=== PATIENT | female | born 1940 | race Caucasian/White ===

== ENCOUNTER 2021-07-23 11:58 | Observation (INO) | payer MEDICARE ==
[2021-07-23] MEDS ORDERED: MORPHINE SULFATE 2 MG INJ IV ONE (12:32)
[2021-07-23] MEDS ORDERED: Pepcid 20 MG VIAL IV ONE ×2 (12:32→12:40)
[2021-07-23] MEDS ORDERED: Zofran 4 MG/2 ML VIAL IV ONE (12:32)
[2021-07-23] MEDS ORDERED: Sodium Chloride 0.9% 500 ML 500 ML IV ONE ×2 (12:33→12:46)
[2021-07-23] MEDS ORDERED: MORPHINE SULFATE 2 MG INJ ONE (12:40)
[2021-07-23] MEDS ORDERED: Zofran 4 MG/2 ML VIAL ONE (12:40)
[2021-07-23] MEDS ORDERED: Sodium Chloride 0.9% 1000 ML 0 ML ONE (12:40)
[2021-07-23 12:59] LABS: Absolute Neutrophil Ct (ANC) 2.83 (1.4-6.9); BASOPHIL % 0.2 % (0.0-0.4); Basophil (Absolute #) 0.01 (0-0.4); Eosinophil % 0.6 % (0.00-5.0); Eosinophil (Absolute #) 0.03 (0-0.5); Hematocrit 39.4 % (35-47); Hemoglobin 13.3 gm/dl (12.0-16.0); Lymphocyte (Absolute #) 1.87 (1.0-4.6); Lymphocytes % 35.6 % (24.0-44.0); Mean Cell Volume 88.3 fl (78-100); Mean Corpuscular Hemoglobin 29.8 pg (26-32); Mean Corpuscular Hgb Concent. 33.8 g/dl (32-36); Mean Platelet Volume 11.7 fl (7.5-11.0); Monocyte (Absolute #) 0.51 (0.0-1.3); Monocytes % 9.7 % (0.0-12.0); Neutrophil % 53.9 % (36.0-66.0); Platelet Count 181 K/mm3 (150-450); Red Blood Count 4.46 M/mm3 (4.1-5.4); Red Cell Distribution Width 13.8 % (11.5-14.0); White Blood Count 5.3 K/mm3 (4.0-10.5)
[2021-07-23 13:02] LABS: ALBUMIN 4.2 g/dL (3.5-5.0); ANION GAP 20.1 MEQ/L (5-15); BILIRUBIN,TOTAL 1.1 mg/dL (0.2-1.3); Calcium 9.2 mg/dL (8.4-10.2); Creatinine 1 1.13 mg/dL (0.52-1.04); EST GLOMERULAR FILTRATION RATE 49.1 ML/MIN; Potassium 3.3 mmol/L (3.5-5.1); Total Protein 7.5 g/dL (6.3-8.2)
[2021-07-23] MEDS ORDERED: Zithromax 500 MG/ 250 ML NaCl Premix 500 MG/250 ML IVPB IV STA (14:15)
[2021-07-23] MEDS ORDERED: ROCEPHIN 2 Gm-D5w 50ML BAG** 2 G/50 ML IVPB IV STA (14:15)
[2021-07-23] MEDS ORDERED: ROCEPHIN 2 Gm-D5w 50ML BAG** 2 G/50 ML IVPB IV ONE (15:05)
--- NOTE | 2021-07-23 15:22 | ERPHSYRPT ---
- History of Present Illness Time Seen by Provider: 07/23/21 12:10 Source: patient Exam Limitations: no limitations Patient Subjective Stated Complaint: pt reports, chills, body aches, vomiting, diarrhea, pt states "even my hair hurts" pt states that she feels so weak she was not able to stand this morning. pt also reports she has not been able to keep food or water down since 07/20/21. pt denies any known covid contact, pt is not vaccinated. Triage Nursing Assessment: pt is aox3, pt appears in pain, pupils perrl, temp 99.9, resps easy and non labored, radial pulses strong and equal, cap refill < 3 seconds, pt abd soft, non tender, pt skin pale warm dry. pt mucous membranes appear dry. Physician History: 81 years old female presented to the ER with chief complaint of flulike symptoms with predominantly body aches, chills, generalized weakness fatigue, loose stool with nausea and occasional vomiting but mostly dry heaving. She is also complaining of mild generalized abdominal pain. Denies any chest pain or palpitations. Shortness of breath with activity. Denies any sick contact. Timing/Duration: day(s) (2), intermittent, gradual onset, worse Cough Quality/Degree: dry cough Possible Cause: no prior episodes Associated Symptoms: chills, chest pain/soreness, cough, headache, muscle aches, nasal congestion, nasal drainage, sore throat Allergies/Adverse Reactions: No Known Drug Allergies Allergy (Verified 07/23/21 12:18) Home Medications: Aspirin 81 mg PO DAILY 04/19/13 [History] Desvenlafaxine Succinate [Pristiq] 100 mg PO DAILY 04/19/13 [History] Hydrochlorothiazide 12.5 mg PO DAILY 04/19/13 [History] Mometasone/Formoterol [Dulera 100 Mcg/5 Mcg Inhaler] 1 inh [facility] 04/19/13 [History] Nitroglycerin 0.4 mg Tablet [Nitrostat 0.4 MG Tablet] 0.4 mg [facility] 04/19/13 [History] Tiotropium [place] Inhaler [Spiriva 18 Mcg/Cap Inhaler] 1 inh [facility] 04/19/13 [History] Metformin HCl 500 mg [Glucophage 500 MG] 500 mg PO BID 05/16/16 [History] Hx Tetanus, Diphtheria Vaccination/Date Given: Yes Hx Influenza Vaccination/Date Given: Yes Hx Pneumococcal Vaccination/Date Given: Yes Immunizations Up to Date: Yes Travel Risk - International Travel Have you traveled outside of the country in past 3 weeks: No - Coronavirus Screening Are you exhibiting any of the following symptoms?: Yes Symptoms: Fever, Vomiting/Diarrhea, Headaches/Body Aches/Fatigue Close contact with a COVID-19 positive Pt in past 14-21 Days: No - Vaccine Status Have you recieved a Covid-19 vaccination: No - Review of Systems Constitutional: Chills, Fatigue, Weakness Eyes: No Symptoms Ears, Nose, & Throat: Nose Congestion Respiratory: Cough, Dyspnea Cardiac: No Symptoms Abdominal/Gastrointestinal: Abdominal Pain, Nausea, Vomiting, Diarrhea Genitourinary Symptoms: No Symptoms Musculoskeletal: Myalgias Skin: No Symptoms Neurological: Headache Psychological: No Symptoms Endocrine: No Symptoms Hematologic/Lymphatic: No Symptoms Immunological/Allergic: No Symptoms - Past Medical History Pertinent Past Medical History: Yes Neurological History: No Pertinent History ENT History: Cataracts, Other Cardiac History: Angina, Coronary Artery Disease, High Cholesterol, Hypertension Respiratory History: Asthma, Bronchitis, COPD, Pulmonary Embolism Endocrine Medical History: Diabetes Type II Musculoskeletal History: Arthritis, Degenerative Disk Disease, Fractures GI Medical History: Hernia, Polyps Psycho-Social History: Anxiety, Depression Female Reproductive Disorders: No Pertinent History Other Medical History: Patterned dystrophy macular degeneration, 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, hiatal hernia, crushed left shoulder without repair, right wrist fracture without repair - Past Surgical History Past Surgical History: Yes Neuro Surgical History: No Pertinent History Cardiac: Cardiac Stent Respiratory: No Pertinent History Gastrointestinal: No Pertinent History Genitourinary: No Pertinent History Musculoskeletal: Orthopedic Surgery Female Surgical History: No Pertinent History Other Surgical History: 2 back surgeries - Social History Smoking Status: Never smoker Exposure to second hand smoke: Yes (several yrs ago) Drug Use: none Patient Lives Alone: Yes - Female History Hx Now: No - Nursing Vital Signs Nursing Vital Signs: Initial Vital Signs Temperature 99.9 F 07/23/21 12:08 Pulse Rate 80 07/23/21 12:08 Respiratory Rate 22 07/23/21 12:08 Blood Pressure 129/71 07/23/21 12:08 O2 Sat by Pulse Oximetry 99 07/23/21 12:08 Pain Scale Pain Intensity 5 - Physical Exam General Appearance: no apparent distress, alert Eye Exam: PERRL/EOMI, eyes nml inspection Ears, Nose, Throat Exam: normal ENT inspection, pharyngeal erythema Neck Exam: normal inspection, non-tender, full range of motion Respiratory Exam: crackles/rales, rhonchi, wheezing Cardiovascular Exam: regular rate/rhythm, normal heart sounds Gastrointestinal/Abdomen Exam: soft, normal bowel sounds, tenderness (Minimal upper abdomen without guarding or rebound) Extremity Exam: normal inspection, normal range of motion Neurologic Exam: alert, oriented x 3, cooperative Skin Exam: normal color SpO2 Interpretation: normal SpO2: 99 O2 Delivery: Room Air Ordered Tests: Active Orders 24 hr Category Date Time Status IV Insertion STAT Care 07/23/21 12:32 Active NPO (ED) STAT Care 07/23/21 12:32 Active ABDOMEN AND PELVIS W/0 CONTRAS [CT] Stat Exams 07/23/21 13:05 Taken AMYLASE Stat Lab 07/23/21 12:13 Completed CBC W DIFF Stat Lab 07/23/21 12:13 Completed CMP Stat Lab 07/23/21 12:13 Completed LIPASE Stat Lab 07/23/21 12:13 Completed Lactic Acid Stat Lab 07/23/21 12:32 Completed Lactic Acid Stat Lab 07/23/21 15:05 Received UA W/RFX UR CULTURE Stat Lab 07/23/21 12:33 Ordered Medication Summary Generic Name Dose Route Start Last Admin Trade Name Freq PRN Reason Stop Dose Admin Remdesivir 200 mg/ Sodium 250 mls @ 125 mls/hr 07/23/21 16:27 Chloride IV 07/23/21 18:26 ONCE ONE Discontinued Medications Generic Name Dose Route Start Last Admin Trade Name Freq PRN Reason Stop Dose Admin Dexamethasone Sodium Phosphate 6 mg 07/23/21 16:27 Decadron 10mg Inj. IV 07/23/21 16:28 STAT ONE Famotidine 20 mg 07/23/21 12:32 07/23/21 12:53 Pepcid 20 Mg Vial IV 07/23/21 12:33 20 mg STAT ONE Administration Famotidine Confirm 07/23/21 12:40 Pepcid 20 Mg Vial Administered 07/23/21 12:41 Dose 20 mg IV .STK-MED ONE Sodium Chloride 500 mls @ 500 mls/hr 07/23/21 12:33 07/23/21 15:31 Sodium Chloride 0.9% 500 Ml IV 07/23/21 13:32 Infused .Q1H ONE Infusion Sodium Chloride Confirm 07/23/21 12:40 Sodium Chloride 0.9% 1000 Ml Administered 07/23/21 12:41 Dose 1,000 mls @ ud .ROUTE .STK-MED ONE Sodium Chloride Confirm 07/23/21 12:46 Sodium Chloride 0.9% 500 Ml Administered 07/23/21 12:47 Dose 500 mls @ ud IV .STK-MED ONE Azithromycin 500 mg in 250 mls @ 250 mls/hr 07/23/21 14:15 07/23/21 15:50 Zithromax 500 Mg/ 250 Ml Nacl Premix IV 07/23/21 15:14 250 ml/hr STAT STA 250 mls/hr Administration Ceftriaxone Sodium/Dextrose 2 g in 50 mls @ 100 mls/hr 07/23/21 14:15 07/23/21 15:46 Rocephin 2 Gm-D5w 50ml Bag IV 07/23/21 14:44 Infused STAT STA Infusion Ceftriaxone Sodium/Dextrose Confirm 07/23/21 15:05 Rocephin 2 Gm-D5w 50ml Bag Administered 07/23/21 15:06 Dose 2 g in 50 mls @ ud IV .STK-MED ONE Azithromycin Confirm 07/23/21 15:48 Zithromax 500 Mg/ 250 Ml Nacl Premix Administered 07/23/21 15:49 Dose 500 mg in 250 mls @ ud IV .STK-MED ONE Morphine Sulfate 2 mg 07/23/21 12:32 07/23/21 12:51 Morphine Sulfate 2 Mg Inj IV 07/23/21 12:33 2 mg STAT ONE Administration Morphine Sulfate Confirm 07/23/21 12:40 Morphine Sulfate 2 Mg Inj Administered 07/23/21 12:41 Dose 2 mg .ROUTE .STK-MED ONE Ondansetron HCl 4 mg 07/23/21 12:32 07/23/21 12:49 Zofran 4 Mg/2 Ml Vial IV 07/23/21 12:33 4 mg STAT ONE Administration Ondansetron HCl Confirm 07/23/21 12:40 Zofran 4 Mg/2 Ml Vial Administered 07/23/21 12:41 Dose 4 mg .ROUTE .STK-MED ONE Lab/Rad Data: Laboratory Result Diagrams 07/23/21 12:13 07/23/21 12:13 Laboratory Results 07/23/21 07/23/21 07/23/21 Range/Units 15:03 12:32 12:13 WBC (4.0-10.5) K/mm3 RBC (4.1-5.4) M/mm3 Hgb (12.0-16.0) gm/dl Hct (35-47) % MCV (78-100) fl MCH (26-32) pg MCHC (32-36) g/dl RDW (11.5-14.0) % Plt Count (150-450) K/mm3 MPV (7.5-11.0) fl Gran % (36.0-66.0) % Eos # (Auto) (0-0.5) Absolute Lymphs (auto) (1.0-4.6) Absolute Monos (auto) (0.0-1.3) Lymphocytes % (24.0-44.0) % Monocytes % (0.0-12.0) % Eosinophils % (0.00-5.0) % Basophils % (0.0-0.4) % Absolute Granulocytes (1.4-6.9) Basophils # (0-0.4) Sodium 138 (137-145) mmol/L Potassium 3.3 L (3.5-5.1) mmol/L Chloride 102 (98-107) mmol/L Carbon Dioxide 19 L (22-30) mmol/L Anion Gap 20.1 H (5-15) MEQ/L BUN 19 H (7-17) mg/dL Creatinine 1.13 H (0.52-1.04) mg/dL Estimated GFR 49.1 ML/MIN Glucose 120 H (74-106) mg/dL Lactic Acid 2.3 H (0.4-2.0) Calcium 9.2 (8.4-10.2) mg/dL Total Bilirubin 1.10 (0.2-1.3) mg/dL AST 29 (14-36) U/L ALT 14 (0-35) U/L Alkaline Phosphatase 87 (38-126) U/L Serum Total Protein 7.5 (6.3-8.2) g/dL Albumin 4.2 (3.5-5.0) g/dL Amylase 69 (30-110) U/L Lipase 288 (23-300) U/L SARS-CoV-2 (PCR) POSITIVE A (NEGATIVE) 07/23/21 Range/Units 12:13 WBC 5.3 (4.0-10.5) K/mm3 RBC 4.46 (4.1-5.4) M/mm3 Hgb 13.3 (12.0-16.0) gm/dl Hct 39.4 (35-47) % MCV 88.3 (78-100) fl MCH 29.8 (26-32) pg MCHC 33.8 (32-36) g/dl RDW 13.8 (11.5-14.0) % Plt Count 181 (150-450) K/mm3 MPV 11.7 H (7.5-11.0) fl Gran % 53.9 (36.0-66.0) % Eos # (Auto) 0.03 (0-0.5) Absolute Lymphs (auto) 1.87 (1.0-4.6) Absolute Monos (auto) 0.51 (0.0-1.3) Lymphocytes % 35.6 (24.0-44.0) % Monocytes % 9.7 (0.0-12.0) % Eosinophils % 0.6 (0.00-5.0) % Basophils % 0.2 (0.0-0.4) % Absolute Granulocytes 2.83 (1.4-6.9) Basophils # 0.01 (0-0.4) Sodium (137-145) mmol/L Potassium (3.5-5.1) mmol/L Chloride (98-107) mmol/L Carbon Dioxide (22-30) mmol/L Anion Gap (5-15) MEQ/L BUN (7-17) mg/dL Creatinine (0.52-1.04) mg/dL Estimated GFR ML/MIN Glucose (74-106) mg/dL Lactic Acid (0.4-2.0) Calcium (8.4-10.2) mg/dL Total Bilirubin (0.2-1.3) mg/dL AST (14-36) U/L ALT (0-35) U/L Alkaline Phosphatase (38-126) U/L Serum Total Protein (6.3-8.2) g/dL Albumin (3.5-5.0) g/dL Amylase (30-110) U/L Lipase (23-300) U/L SARS-CoV-2 (PCR) (NEGATIVE) - Progress Progress: improved Air Movement: good Progress Note: 31 years old is evaluated for flulike symptoms with diarrhea, mild cough and URI. Started on gentle hydration, work-up showed normal white count, chemistry profile consistent with dehydration. CT abdomen pelvis negative for any acute intra-abdominal findings but has bilateral multi lobar pneumonia. Covid 19 is positive. Given a dose of antibiotic and remdesivir along with Decadron. Discussed with Dr. Bee and patient is being admitted. Blood Culture(s) Obtained: Yes Antibiotics given: Yes Will see patient in: hospital (observation) Counseled pt/family regarding: lab results, diagnosis, rad results - Departure Departure Disposition: Observation Clinical Impression: Dehydration Bilateral pneumonia Qualifiers: Pneumonia type: due to unspecified organism Lung location: unspecified part of lung Qualified Code(s): J18.9 - Pneumonia, unspecified organism Condition: Stable Critical Care Time: No Referrals: ANNABELLE BRIONES [Primary Care Provider] -
[2021-07-23] MEDS ORDERED: Zithromax 500 MG/ 250 ML NaCl Premix 500 MG/250 ML IVPB IV ONE (15:48)
[2021-07-23] MEDS ORDERED: REMDESIVIR 200 MG in Sodium Chloride 0.9% 250 ML 250 ML IV ONE ×2 (16:27→20:00)
--- NOTE | 2021-07-23 18:30 | XRAY ---
Indication: Nausea, vomiting, fever, bodyache. Suspect COVID 19. Multiple contiguous axial images obtained through the abdomen and pelvis without contrast. Comparison: None. Lung bases demonstrates minimal patchy groundglass airspace disease bilaterally without consolidation/large effusion. Heart not enlarged. Small hiatal hernia. Noncontrasted stomach and bowel loops nonobstructed. Hysterectomy reported. No free fluid/air. Remaining liver, gallbladder, pancreas, spleen, adrenal glands, kidneys, ureters, and bladder are unremarkable for noncontrast exam. Mild scattered aortoiliac calcifications without AAA. Osseous structures intact with mild osteopenia and mild/moderate degenerative changes throughout the thoracolumbar spine. Impression: 1. Bilateral patchy groundglass airspace disease in both lower lungs. 2. Small hiatal hernia. 3. Remaining CT abdomen/pelvis without contrast exam is negative. Comment: Preliminary interpretation made by [facility]. No critical discrepancy
[2021-07-23] MEDS ORDERED: TYLENOL 325 MG PO PRN (18:53)
[2021-07-23] MEDS ORDERED: Zofran 4 MG/2 ML VIAL IV PRN (18:53)
[2021-07-23] MEDS ORDERED: Sodium Chloride 0.9% 1000 ML 1,000 ML IV SCH (19:00)
[2021-07-23] MEDS ORDERED: DECADRON 10MG INJ. IV SCH (20:00)
[2021-07-23] MEDS: Pepcid 20 MG VIAL IV SCH (20:29)
[2021-07-23] MEDS: DECADRON 10MG INJ. IV ONE (21:30)
[2021-07-23] MEDS ORDERED: ENOXAPARIN SODIUM SQ SCH (22:00)
[2021-07-24 01:46] LABS: Appearance CLEAR (CLEAR); Bilirubin NEGATIVE (NEGATIVE); Blood NEGATIVE Ery/ul (0-5); Epithelial Cells RARE /HPF (FEW); Glucose NEGATIVE (NEGATIVE); Ketones TRACE (NEGATIVE); Leukocyte Esterase TRACE (NEGATIVE); Mucus SLIGHT /HPF (NEGATIVE); Nitrite NEGATIVE (NEGATIVE); Protein,Urine Dip NEGATIVE (Negative); Specific Gravity 1.016 (1.005-1.025); Urobilinogen NEGATIVE mg/dL (0-1)
[2021-07-24 05:32] LABS: Absolute Neutrophil Ct (ANC) 1.25 (1.4-6.9); Basophil (Absolute #) 0 (0-0.4); Eosinophil (Absolute #) 0 (0-0.5); Hematocrit 37.7 % (35-47); Lymphocyte (Absolute #) 0.74 (1.0-4.6); Lymphocytes % 35.2 % (24.0-44.0); Mean Cell Volume 91.7 fl (78-100); Mean Corpuscular Hemoglobin 29.2 pg (26-32); Mean Corpuscular Hgb Concent. 31.8 g/dl (32-36); Mean Platelet Volume 11.6 fl (7.5-11.0); Monocyte (Absolute #) 0.11 (0.0-1.3); Monocytes % 5.2 % (0.0-12.0); Neutrophil % 59.6 % (36.0-66.0); Platelet Count 129 K/mm3 (150-450); Red Blood Count 4.11 M/mm3 (4.1-5.4); Red Cell Distribution Width 13.6 % (11.5-14.0); White Blood Count 2.1 K/mm3 (4.0-10.5)
[2021-07-24 05:42] LABS: ALBUMIN 3.6 g/dL (3.5-5.0); ALKALINE PHOSPHATASE 67 U/L (38-126); ANION GAP 16.7 MEQ/L (5-15); BLOOD UREA NITROGEN 19 mg/dL (7-17); CHLORIDE 105 mmol/L (98-107); Calcium 8.5 mg/dL (8.4-10.2); Carbon Dioxide 23 mmol/L (22-30); Creatinine 1 0.94 mg/dL (0.52-1.04); EST GLOMERULAR FILTRATION RATE > 60.0 ML/MIN; Glucose 165 mg/dL (74-106); Potassium 3.8 mmol/L (3.5-5.1); SGOT/AST 26 U/L (14-36); SGPT/ALT 12 U/L (0-35); SODIUM 140 mmol/L (137-145); Total Protein 6.6 g/dL (6.3-8.2)
[2021-07-24] MEDS: DECADRON 10MG INJ. IV ONE (05:59)
[2021-07-24 07:22] VITALS: BP 136/66
[2021-07-24] MEDS ORDERED: HUMALOG SQ PRN (09:00)
[2021-07-24] MEDS ORDERED: ROCEPHIN 1 Gm-D5w 50 ml Bag** 1 G/50 ML IVPB IV SCH (10:00)
[2021-07-24] MEDS ORDERED: Zithromax 500 MG/ 250 ML NaCl Premix 500 MG/250 ML IVPB IV SCH (10:00)
[2021-07-24] MEDS ORDERED: NON-FORMULARY ITEM (Exenatide Microspheres [Bydureon Bcise] 2 MG) SQ SCH (10:45)
[2021-07-24] MEDS ORDERED: Ativan 1 MG PO SCH (11:00)
[2021-07-24] MEDS ORDERED: MYRBETRIQ PO SCH (11:00)
[2021-07-24] MEDS ORDERED: Paxil 20 MG PO SCH (11:00)
[2021-07-24] MEDS: Pepcid 20 MG VIAL IV SCH (11:09)
[2021-07-24 15:22] VITALS: PULSE 75; O2SAT 96
[2021-07-24] MEDS ORDERED: REMDESIVIR 100 MG in Sodium Chloride 0.9% 100 ML BAG 100 ML IV SCH ×2 (17:09→20:00)
--- NOTE | 2021-07-25 09:10 | SSS ---
DISCHARGE DIAGNOSES: 1) COVID PNEUMONIA, MILD. 2) VOMITING SECONDARY TO COVID. CHIEF COMPLAINT: Fatigue, cough. HOSPITAL COURSE: The patient has been feeling fatigued, coughing and a little bit of nausea. She presented to the emergency room and was found to be COVID positive and was admitted for treatment. She had some nausea and vomiting the morning of admission. No history of ulcers or gallbladder problems. She just kind of aches all over and has felt this way for the last four days. She has not had the vaccine. She thinks she had COVID last year but was tested and it is pretty doubtful. PAST SURGICAL HISTORY: Hysterectomy. REVIEW OF SYSTEMS: HEENT: No problems hearing or seeing. CHEST: Not short of breath. No coughing. CVS: No exertional chest pain or palpitations. ABDOMEN: She has been nauseated, vomited this morning. This evening however she is feeling fine. Nausea has gone away and she wants to try to eat some food. EXTREMITIES: No problems ambulating. SOCIAL HISTORY: The patient lives by herself with a few dogs including a young pug which she is worried about. Her son put him outside in the heat. She lives in [place], a nonsmoker. PHYSICAL EXAMINATION: A sturdy, strong looking 81-year-old white female in no distress this afternoon. HEENT: Pupils equal and reactive to light. NECK: Supple without adenopathy. CHEST: Few crackles at the base. CVS: Regular rate. No murmurs or gallops. ABDOMEN: Soft. No masses or organomegaly. The patient is having normal bowel sounds. EXTREMITIES: No edema. Moves all extremities well. LAB DATA AND TESTS: The patient's blood sugar is 165, D-dimer is only 487. IMPRESSION: The patient has COVID pneumonia mild and some vomiting secondary to COVID. PLAN: The patient will be given some IV fluids, Lovenox, Remdesivir and Decadron. I expect she will do well pretty quickly.
[2021-07-25] MEDS ORDERED: PAROXETINE HCL 30 MG PO SCH (10:00)
[2021-07-25] MEDS ORDERED: NON-FORMULARY ITEM (Mirabegron [Myrbetriq] 50 MG) PO SCH (10:00)
[2021-07-25] MEDS ORDERED: ECOTRIN 81 MG PO SCH (11:00)
== END 2021-07-24 15:15 | disposition home or self-care (01) ==
LOC: ED 11:58 → MED SURG 18:51
PROVIDERS: ADMIT Family Medicine; ATTEND Family Medicine
DX: U07.1 COVID-19 (principal); J12.82 Pneumonia due to coronavirus disease 2019; R53.1 Weakness; R53.83 Other fatigue; E86.0 Dehydration; E11.9 Type 2 diabetes mellitus without complications; R11.2 Nausea with vomiting, unspecified; R10.84 Generalized abdominal pain; R07.9 Chest pain, unspecified; R51.9 Headache, unspecified; Z79.899 Other long term (current) drug therapy; R19.7 Diarrhea, unspecified; I10 Essential (primary) hypertension; E78.00 Pure hypercholesterolemia, unspecified; Z20.822 Contact with and (suspected) exposure to COVID-19
CPT/HCPCS: 36000; 36415; 74176; 80053; 81001; 82150; 82947; 83605; 83690; 85025; 85379; 93268; 96360; 96365; 96374; 96375; 99285; G0378; U0003; J0456; J0696; J1100; J1650; J2270; J2405; A9270-GY

== ENCOUNTER 2021-07-31 11:13 | Emergency (ER) | payer MEDICARE ==
--- NOTE | 2021-07-31 11:38 | ERPHSYRPT ---
- History of Present Illness Source: patient, EMS Exam Limitations: no limitations Patient Subjective Stated Complaint: L ear ache and FLORES onset yesterday Triage Nursing Assessment: pt to ED c/o L ear ache and FLORES onset yesterday. pt was dx COVID positive last week and has now developed FLORES. "It feels like its starting behind my ear and making my head hurt." rates 08/11. Physician History: 81 yo wf w known CV19 presents per ambulance w L posterior auricular pain x 4 hours. Pain is sharp but is presently a 0. It does seem to get worse w neck mov ement. She has a mild cough but denies fever/N/V/D/chest pain/dyspnea/focal weakness. Timing/Duration: other (4hrs) Quality: sharpness Severity of Pain-Max: moderate Severity of Pain-Current: none Recent Head Trauma: no recent headache/trauma Modifying Factors: Improves With: movement Associated Symptoms: nasal congestion, No confusion, No dizziness, No fatigue, No facial pain, No fever/chills, No flushing, No light-headedness, No loss of consciousness, No nausea/vomiting, No nasal drainage, No neck pain, No numbness in legs/feet, No rash, No sweating, No scotoma, No seizures, No sinus infection, No sensitive to light, No speech problems, No stiff neck, No trouble walking, No vision changes, No visual disturbance, No weakness Previous symptoms: no prior history Allergies/Adverse Reactions: No Known Drug Allergies Allergy (Verified 07/23/21 12:18) Home Medications: Aspirin EC 81 mg [Ecotrin 81 mg] 81 mg PO DAILY 07/24/21 [History] Exenatide Microspheres [Bydureon Bcise] 2 mg SQ WEEKLY 07/24/21 [History] LORazepam [Lorazepam] 1 mg PO BID 07/24/21 [History] Mirabegron [Myrbetriq] 50 mg PO DAILY 07/24/21 [History] Paroxetine HCl 30 mg PO QAM 07/24/21 [History] Hx Tetanus, Diphtheria Vaccination/Date Given: Yes Hx Influenza Vaccination/Date Given: Yes Hx Pneumococcal Vaccination/Date Given: Yes Immunizations Up to Date: Yes Travel Risk - International Travel Have you traveled outside of the country in past 3 weeks: No - Coronavirus Screening Are you exhibiting any of the following symptoms?: Yes Symptoms: Headaches/Body Aches/Fatigue - Vaccine Status Have you recieved a Covid-19 vaccination: No - Review of Systems Constitutional: No Symptoms Eyes: No Symptoms Ears, Nose, & Throat: No Symptoms, Ear Pain, Nose Pain Respiratory: No Symptoms, Cough Cardiac: No Symptoms Abdominal/Gastrointestinal: No Symptoms Genitourinary Symptoms: No Symptoms Musculoskeletal: No Symptoms Skin: No Symptoms Neurological: No Symptoms, Headache Psychological: No Symptoms Endocrine: No Symptoms Hematologic/Lymphatic: No Symptoms Immunological/Allergic: No Symptoms - Past Medical History Pertinent Past Medical History: Yes Neurological History: No Pertinent History ENT History: Cataracts, Other Cardiac History: Angina, Coronary Artery Disease, High Cholesterol, Hypertension Respiratory History: Asthma, Bronchitis, COPD, Pulmonary Embolism Endocrine Medical History: Diabetes Type II Musculoskeletal History: Arthritis, Degenerative Disk Disease, Fractures GI Medical History: Hernia, Polyps Psycho-Social History: Anxiety, Depression Female Reproductive Disorders: No Pertinent History Other Medical History: Patterned dystrophy macular degeneration, 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, hiatal hernia, crushed left shoulder without repair, right wrist fracture without repair - Past Surgical History Past Surgical History: Yes Neuro Surgical History: No Pertinent History Cardiac: Cardiac Stent Respiratory: No Pertinent History Gastrointestinal: No Pertinent History Genitourinary: No Pertinent History Musculoskeletal: Orthopedic Surgery Female Surgical History: No Pertinent History Other Surgical History: 2 back surgeries - Social History Smoking Status: Never smoker Exposure to second hand smoke: No Drug Use: none Patient Lives Alone: No Significant Family History: no pertinent family hx - Female History Hx Now: No - Nursing Vital Signs Nursing Vital Signs: Initial Vital Signs Temperature 97.4 F 07/31/21 11:25 Pulse Rate 89 07/31/21 11:25 Respiratory Rate 19 07/31/21 11:25 Blood Pressure 141/65 07/31/21 11:25 O2 Sat by Pulse Oximetry 98 07/31/21 11:25 Pain Scale Pain Intensity 8 Hypertensive - Physical Exam General Appearance: no apparent distress Eye Exam: PERRL/EOMI, eyes nml inspection Ears, Nose, Throat Exam: normal ENT inspection, TMs normal, pharynx normal, moist mucous membranes Neck Exam: normal inspection, non-tender, supple, full range of motion, No meningismus, No mass, No Brudzinski, No Kernig's, No carotid bruit Respiratory Exam: normal breath sounds, lungs clear, airway intact, No respiratory distress Cardiovascular Exam: regular rate/rhythm, normal heart sounds, normal peripheral pulses, No murmur Gastrointestinal/Abdominal Exam: soft, normal bowel sounds, No tenderness Back Exam: normal inspection, normal range of motion, No CVA tenderness Extremity Exam: normal inspection, normal range of motion Mental Status Exam: alert, oriented x 3, cooperative vp data Exam: normal hearing, normal speech, PERRL, abnormal eye position, No abnormal gag reflex Coordination/Gait Exam: normal gait Motor/Sensory Exam: no motor deficit, no sensory deficit, no pronator drift, negative Babinski's sign DTR Exam: bicep (R): 2+, bicep (L): 2+ Skin Exam: normal color, warm, dry, No rash Lymphatic Exam: No adenopathy SpO2 Interpretation: normal SpO2: 98 O2 Delivery: Room Air - Course Nursing assessment & vital signs reviewed: Yes EKG Interpreted by Me: RATE (NSR/R86/Low voltage/Normal Qt-QTc/Qwave 3- AVF/nonspecific ST-Twave changes) - CT Exams Head CT Interpretation: Tele-radiologist Report (CT head nad) Ordered Tests: Active Orders 24 hr Category Date Time Status EKG-ER Only STAT Care 07/31/21 11:34 Completed HEAD WITHOUT CONTRAST [CT] Stat Exams 07/31/21 11:35 Completed CBC W DIFF Stat Lab 07/31/21 11:54 Completed CMP Stat Lab 07/31/21 11:54 Completed TROPONIN Q3H Lab 07/31/21 11:54 Completed Medication Summary Discontinued Medications Generic Name Dose Route Start Last Admin Trade Name Seema PRN Reason Stop Dose Admin Ketorolac Tromethamine 15 mg 07/31/21 12:43 07/31/21 12:47 Toradol 30 Mg Injection IV 07/31/21 12:44 15 mg STAT ONE Administration Ketorolac Tromethamine Confirm 07/31/21 12:45 Toradol 30 Mg Injection Administered 07/31/21 12:46 Dose 30 mg .ROUTE .[employer] ONE Lab/Rad Data: Laboratory Result Diagrams 07/31/21 11:54 07/31/21 11:54 Laboratory Results 07/31/21 07/31/21 07/31/21 Range/Units 11:54 11:54 11:54 WBC 9.7 (4.0-10.5) K/mm3 RBC 4.10 (4.1-5.4) M/mm3 Hgb 12.0 (12.0-16.0) gm/dl Hct 35.7 (35-47) % MCV 87.1 (78-100) fl MCH 29.3 (26-32) pg MCHC 33.6 (32-36) g/dl RDW 13.0 (11.5-14.0) % Plt Count 290 (150-450) K/mm3 MPV 10.7 (7.5-11.0) fl Gran % 69.1 H (36.0-66.0) % Eos # (Auto) 0.11 (0-0.5) Absolute Lymphs (auto) 1.50 (1.0-4.6) Absolute Monos (auto) 1.40 H (0.0-1.3) Lymphocytes % 15.4 L (24.0-44.0) % Monocytes % 14.4 H (0.0-12.0) % Eosinophils % 1.1 (0.00-5.0) % Basophils % 0.0 (0.0-0.4) % Absolute Granulocytes 6.70 (1.4-6.9) Basophils # 0 (0-0.4) Sodium 132 L (137-145) mmol/L Potassium 3.2 L (3.5-5.1) mmol/L Chloride 99 (98-107) mmol/L Carbon Dioxide 22 (22-30) mmol/L Anion Gap 14.3 (5-15) MEQ/L BUN 21 H (7-17) mg/dL Creatinine 1.03 (0.52-1.04) mg/dL Estimated GFR 54.7 ML/MIN Glucose 112 H (74-106) mg/dL Calcium 9.4 (8.4-10.2) mg/dL Total Bilirubin 1.40 H (0.2-1.3) mg/dL AST 25 (14-36) U/L ALT 20 (0-35) U/L Alkaline Phosphatase 94 (38-126) U/L Troponin I < 0.012 (0.000-0.034) ng/mL Serum Total Protein 7.0 (6.3-8.2) g/dL Albumin 3.7 (3.5-5.0) g/dL - Progress Progress Note: 07/31/21 20:07 15mg IV Toradol 07/31/21 20:08 Pain worse when pt moves head and is localized to her insertion of L sternomastoid muscle. Counseled pt/family regarding: lab results, diagnosis, need for follow-up, rad results - Departure Departure Disposition: Home Clinical Impression: Cervical muscle pain Condition: Stable Critical Care Time: No Referrals: ANNABELLE BRIONES [Primary Care Provider] - Instructions: Headache, Adult (DC), Generalized Neck Pain (DC) Additional Instructions: Heat/Rest/Massage Toradol as needed for pain Follow up with your family MD Return to ER for increasing pain/Chest pain/Increasing shortness of breath Prescriptions: Ketorolac Tromethamine [Toradol] 10 mg PO TID PRN #10 tablet PRN Reason: Pain
[2021-07-31 12:02] LABS: Basophil (Absolute #) 0 (0-0.4); Eosinophil % 1.1 % (0.00-5.0); Eosinophil (Absolute #) 0.11 (0-0.5); Hematocrit 35.7 % (35-47); Lymphocytes % 15.4 % (24.0-44.0); Mean Cell Volume 87.1 fl (78-100); Mean Corpuscular Hemoglobin 29.3 pg (26-32); Mean Corpuscular Hgb Concent. 33.6 g/dl (32-36); Mean Platelet Volume 10.7 fl (7.5-11.0); Monocytes % 14.4 % (0.0-12.0); Neutrophil % 69.1 % (36.0-66.0); Platelet Count 290 K/mm3 (150-450); White Blood Count 9.7 K/mm3 (4.0-10.5)
[2021-07-31 12:15] LABS: ALBUMIN 3.7 g/dL (3.5-5.0); ANION GAP 14.3 MEQ/L (5-15); BILIRUBIN,TOTAL 1.4 mg/dL (0.2-1.3); Calcium 9.4 mg/dL (8.4-10.2); Creatinine 1 1.03 mg/dL (0.52-1.04); EST GLOMERULAR FILTRATION RATE 54.7 ML/MIN; Potassium 3.2 mmol/L (3.5-5.1)
--- NOTE | 2021-07-31 12:29 | XRAY ---
Indication: Headache. Multiple contiguous axial images obtained through the head without contrast. Comparison: May 16, 2016. Age-appropriate global atrophy and minimal periventricular degenerative micro-ischemia bilaterally. No acute intracranial hemorrhage, abnormal extra-axial fluid collection, or mass effect. Fourth ventricle is midline without hydrocephalus. Bony calvarium intact. Visualized paranasal sinuses and mastoid air cells are clear. Impression: Nonacute senile brain.
[2021-07-31 12:34] VITALS: BP 122/81
[2021-07-31] MEDS ORDERED: TORAdol 30 mg Injection IV ONE (12:43)
[2021-07-31] MEDS ORDERED: TORAdol 30 mg Injection ONE (12:45)
[2021-07-31 12:52] VITALS: PULSE 87
[2021-07-31 20:09] VITALS: O2SAT 98
== END 2021-07-31 13:13 | disposition home or self-care (01) ==
LOC: ED 11:13
DX: M79.18 Myalgia, other site (principal); H92.02 Otalgia, left ear; R51.9 Headache, unspecified; Z79.899 Other long term (current) drug therapy; R05 Cough; E11.9 Type 2 diabetes mellitus without complications; I25.10 Atherosclerotic heart disease of native coronary artery without angina pectoris; E78.00 Pure hypercholesterolemia, unspecified
CPT/HCPCS: 36000; 36415; 70450; 80053; 84484; 85025; 93005; 96374; 99284; J1885